=== PATIENT | female | born 1970 | race Caucasian/White ===

== ENCOUNTER 2017-03-25 15:08 | Emergency (ER) | payer OTHER ==
[~2017-03-25] VITALS: Ht 162.6 cm; Wt 95.7 kg
--- OUTSIDE RECORDS SUMMARY | ~2017-03-25 | XMS ---
Demographics + + + | Address | [address] | | | [place] [address] | + + + | Preferred Language | Unknown | + + + | Marital Status | Unknown | + + + | Buddhist Affiliation | Unknown | + + + | Race | Unknown | + + + | Ethnic Group | Unknown | + + + Author + + + | Author | [facility] | + + + | Organization | [facility] | + + + | Address | [address] | | | [place] [address] | + + + | Phone | | + + + Care Team Providers + + + + | Care Senior Bi Developer Name | Role | Phone | + + + + Unavailable | Unavailable | + + + + PROBLEMS +---------+ + + +--------+ + + | Type | Condition | ICD9-CM | [id number] | Onset | Condition | SNOMED | | | | Code | Code | Dates | Status | Code | +---------+ + + +--------+ + + | Problem | Depression | 300.4 | | | Active | [id number] | | | with | | | | | | | | anxiety | | | | | | +---------+ + + +--------+ + + | Problem | Insomnia | F51.05 | | | Active | 75927091 | | | due to | | | | | | | | mental | | | | | | | | condition | | | | | | +---------+ + + +--------+ + + | Problem | Hyperglyce | 790.29 | | | Active | 58180045 | | | pedro | | | | | | +---------+ + + +--------+ + + | Problem | Hypertensi | | I10 | | Active | 41453123 | | | on | | | | | | +---------+ + + +--------+ + + | Problem | Family | Z80.3 | | | Active | 531897264 | | | history of | | | | | | | | breast | | | | | | | | cancer | | | | | | +---------+ + + +--------+ + + | Problem | Type 2 | | E11.9 | | Active | 950799750 | | | diabetes | | | | | | | | mellitus | | | | | | | | without | | | | | | | | complicati | | | | | | | | ons | | | | | | +---------+ + + +--------+ + + | Problem | GERD | | K21.9 | | Active | 325826527 | | | (gastroeso | | | | | | | | phageal | | | | | | | | reflux | | | | | | | | disease) | | | | | | +---------+ + + +--------+ + + | Problem | HTN | | I10 | | Active | 58479947 | | | (hypertens | | | | | | | | ion) | | | | | | +---------+ + + +--------+ + + | Problem | Heart | | R01.1 | | Active | 01000551 | | | murmur | | | | | | +---------+ + + +--------+ + + | Problem | Murmur | 785.2 | | | Active | 562391207 | +---------+ + + +--------+ + + | Problem | Anemia, | 280.9 | | | Active | 38930386 | | | iron | | | | | | | | deficiency | | | | | | | | , | | | | | | | | unspecifie | | | | | | | | d | | | | | | +---------+ + + +--------+ + + | Problem | SPRAIN OF | 844.9 | | | Active | 507971903 | | | KNEE & LEG | | | | | | | | NOS | | | | | | +---------+ + + +--------+ + + | Problem | Microcytos | R71.8 | | | Active | 611769510 | | | is | | | | | | +---------+ + + +--------+ + + | Problem | Radicular | 724.4 | | | Active | 954482683 | | | pain of | | | | | | | | right | | | | | | | | lower back | | | | | | +---------+ + + +--------+ + + ALLERGIES Unknown Allergies SOCIAL HISTORY No smoking Hx information available PLAN OF CARE VITAL SIGNS MEDICATIONS Unknown Medications RESULTS No Results PROCEDURES No Known procedures IMMUNIZATIONS No Known Immunizations"
--- OUTSIDE RECORDS SUMMARY | ~2017-03-25 | XMS ---
Demographics + + + | Address | [address] | | | [place] [address] | + + + | Preferred Language | Unknown | + + + | Marital Status | Unknown | + + + | Taoism Affiliation | Unknown | + + + | Race | Unknown | + + + | Ethnic Group | Unknown | + + + Author + + + | Author | [facility] | + + + | Organization | [facility] | + + + | Address | [address] | | | [place] [address] | + + + | Phone | | + + + Care Team Providers + + + + | Care Locker Room Supervisor Name | Role | Phone | + + + + Unavailable | Unavailable | + + + + PROBLEMS +---------+ + + +--------+ + + | Type | Condition | ICD9-CM | [id number] | Onset | Condition | SNOMED | | | | Code | Code | Dates | Status | Code | +---------+ + + +--------+ + + | Problem | Depression | 300.4 | | | Active | [id number] | | | with | | | | | | | | anxiety | | | | | | +---------+ + + +--------+ + + | Problem | Insomnia | F51.05 | | | Active | 97363090 | | | due to | | | | | | | | mental | | | | | | | | condition | | | | | | +---------+ + + +--------+ + + | Problem | Hyperglyce | 790.29 | | | Active | 26252312 | | | pedro | | | | | | +---------+ + + +--------+ + + | Problem | Hypertensi | | I10 | | Active | 35274740 | | | on | | | | | | +---------+ + + +--------+ + + | Problem | Family | Z80.3 | | | Active | 219568247 | | | history of | | | | | | | | breast | | | | | | | | cancer | | | | | | +---------+ + + +--------+ + + | Problem | Type 2 | | E11.9 | | Active | 202301897 | | | diabetes | | | | | | | | mellitus | | | | | | | | without | | | | | | | | complicati | | | | | | | | ons | | | | | | +---------+ + + +--------+ + + | Problem | GERD | | K21.9 | | Active | 530475141 | | | (gastroeso | | | | | | | | phageal | | | | | | | | reflux | | | | | | | | disease) | | | | | | +---------+ + + +--------+ + + | Problem | HTN | | I10 | | Active | 94650082 | | | (hypertens | | | | | | | | ion) | | | | | | +---------+ + + +--------+ + + | Problem | Heart | | R01.1 | | Active | 45346788 | | | murmur | | | | | | +---------+ + + +--------+ + + | Problem | Murmur | 785.2 | | | Active | 088228459 | +---------+ + + +--------+ + + | Problem | Anemia, | 280.9 | | | Active | 69267834 | | | iron | | | [...] | 844.9 | | | Active | 399551588 | | | KNEE & LEG | | | | | | | | NOS | | | | | | +---------+ + + +--------+ + + | Problem | Microcytos | R71.8 | | | Active | 197604868 | | | is | | | | | | +---------+ + + +--------+ + + | Problem | Radicular | 724.4 | | | Active | 895059090 | | | pain of | | | | | | | | right | | | | | | | | lower back | | | | | | +---------+ + + +--------+ + + ALLERGIES No Information SOCIAL HISTORY Never Assessed PLAN OF CARE VITAL SIGNS MEDICATIONS Unknown Medications RESULTS No Results PROCEDURES No Known procedures IMMUNIZATIONS No Known Immunizations MEDICAL (GENERAL) HISTORY + + +---------+ | Type | Description | Date | + + +---------+ | Medical History | hypertension {BP meds | | | | problems: Clonidine IR | | | | helps but unable to take | | | | more than at night because | | | | it causes too much | | | | drowsiness, . Catapres | | | | patch-irritated skin; | | | | Lisinopril/Losartan/Metopro | | | | lol-caused | | | | itching/dizziness and body | | | | aches; Diltiazem-caused | | | | increased skin | | | | sensitivity/lightheadedness | | | | } | | + + +---------+ | Medical History | GERD | | + + +---------+ | Medical History | microcytosis, could be iron | | | | deficiency anemia. | | + + +---------+ | Surgical History | gall bladder | 1988 | + + +---------+ | Surgical History | HINA, BSO - complex pelvic | 07/2013 | | | mass | | + + +---------+ | Surgical History | fracture Left wrist | 04/2014 | + + +---------+ | Surgical History | TVT midurethral sling / | 08/2016 | | | cystoscopy | | + + +---------+ | Hospitalization History | [facility] | | + + +---------+"
--- OUTSIDE RECORDS SUMMARY | ~2017-03-25 | XMS ---
Demographics + + + | Address | [address] | | | [place] [address] | + + + | Preferred Language | Unknown | + + + | Marital Status | Unknown | + + + | Yazidism Affiliation | Unknown | + + + | Race | Unknown | + + + | Ethnic Group | Unknown | + + + Author + + + | Author | [facility] | + + + | Organization | [facility] | + + + | Address | [address] | | | [place] [address] | + + + | Phone | | + + + Care Team Providers + + + + | Care Temper Mill Roller Name | Role | Phone | + + + + Unavailable | Unavailable | + + + + PROBLEMS +---------+ + + +--------+ + + | Type | Condition | ICD9-CM | VHH43-AE | Onset | Condition | SNOMED | | | | Code | Code | Dates | Status | Code | +---------+ + + +--------+ + + | Problem | Depression | 300.4 | | | Active | [id number] | | | with | | | | | | | | anxiety | | | | | | +---------+ + + +--------+ + + | Problem | Insomnia | F51.05 | | | Active | 04549451 | | | due to | | | | | | | | mental | | | | | | | | condition | | | | | | +---------+ + + +--------+ + + | Problem | Hyperglyce | 790.29 | | | Active | 78105508 | | | pedro | | | | | | +---------+ + + +--------+ + + | Problem | Hypertensi | | I10 | | Active | 35973570 | | | on | | | | | | +---------+ + + +--------+ + + | Problem | Family | Z80.3 | | | Active | 254343144 | | | history of | | | | | | | | breast | | | | | | | | cancer | | | | | | +---------+ + + +--------+ + + | Problem | Type 2 | | E11.9 | | Active | 640092986 | | | diabetes | | | | | | | | mellitus | | | | | | | | without | | | | | | | | complicati | | | | | | | | ons | | | | | | +---------+ + + +--------+ + + | Problem | GERD | | K21.9 | | Active | 383746924 | | | (gastroeso | | | | | | | | phageal | | | | | | | | reflux | | | | | | | | disease) | | | | | | +---------+ + + +--------+ + + | Problem | HTN | | I10 | | Active | 35414765 | | | (hypertens | | | | | | | | ion) | | | | | | +---------+ + + +--------+ + + | Problem | Heart | | R01.1 | | Active | 91797159 | | | murmur | | | | | | +---------+ + + +--------+ + + | Problem | Murmur | 785.2 | | | Active | 694925915 | +---------+ + + +--------+ + + | Problem | Anemia, | 280.9 | | | Active | 38768898 | | | iron | | | [...] | 844.9 | | | Active | 203878154 | | | KNEE & LEG | | | | | | | | NOS | | | | | | +---------+ + + +--------+ + + | Problem | Microcytos | R71.8 | | | Active | 427136260 | | | is | | | | | | +---------+ + + +--------+ + + | Problem | Radicular | 724.4 | | | Active | 692912427 | | | pain of | | [...]
--- OUTSIDE RECORDS SUMMARY | ~2017-03-25 | XMS ---
Demographics + + + | Address | [address] | | | [place] [address] | + + + | Preferred Language | Unknown | + + + | Marital Status | Unknown | + + + | Alevism Affiliation | Unknown | + + + | Race | Unknown | + + + | Ethnic Group | Unknown | + + + Author + + + | Author | [facility] | + + + | Organization | [facility] | + + + | Address | [address] | | | [place] [address] | + + + | Phone | | + + + Care Team Providers + + + + | Care Footwear Machinery Instructor Name | Role | Phone | + + + + Unavailable | Unavailable | + + + + PROBLEMS +---------+ + + +--------+ + + | Type | Condition | ICD9-CM | VHX22-OT | Onset | Condition | SNOMED | | | | Code | Code | Dates | Status | Code | +---------+ + + +--------+ + + | Problem | Depression | 300.4 | | | Active | 965158817 | | | with | | | | | | | | anxiety | | | | | | +---------+ + + +--------+ + + | Problem | Insomnia | F51.05 | | | Active | 69070103 | | | due to | | | | | | | | mental | | | | | | | | condition | | | | | | +---------+ + + +--------+ + + | Problem | Hyperglyce | 790.29 | | | Active | 03699282 | | | pedro | | | | | | +---------+ + + +--------+ + + | Problem | Hypertensi | | I10 | | Active | 33356466 | | | on | | | | | | +---------+ + + +--------+ + + | Problem | Family | Z80.3 | | | Active | 449144246 | | | history of | | | | | | | | breast | | | | | | | | cancer | | | | | | +---------+ + + +--------+ + + | Problem | Type 2 | | E11.9 | | Active | 218927182 | | | diabetes | | | | | | | | mellitus | | | | | | | | without | | | | | | | | complicati | | | | | | | | ons | | | | | | +---------+ + + +--------+ + + | Problem | GERD | | K21.9 | | Active | 173421477 | | | (gastroeso | | | | | | | | phageal | | | | | | | | reflux | | | | | | | | disease) | | | | | | +---------+ + + +--------+ + + | Problem | HTN | | I10 | | Active | 19449227 | | | (hypertens | | | | | | | | ion) | | | | | | +---------+ + + +--------+ + + | Problem | Heart | | R01.1 | | Active | 18657261 | | | murmur | | | | | | +---------+ + + +--------+ + + | Problem | Murmur | 785.2 | | | Active | 112937656 | +---------+ + + +--------+ + + | Problem | Anemia, | 280.9 | | | Active | 80070315 | | | iron | | | [...] | 844.9 | | | Active | 472305434 | | | KNEE & LEG | | | | | | | | NOS | | | | | | +---------+ + + +--------+ + + | Problem | Microcytos | R71.8 | | | Active | 169039801 | | | is | | | | | | +---------+ + + +--------+ + + | Problem | Radicular | 724.4 | | | Active | 480956414 | | | pain of | | [...]
[~2017-03-25 15:08] MED LIST: ALEVE220 MG PO; CATAPRES0.1 MG PO; CLONIDINE HCL0.1 MG PO; FAMOTIDINE10 MG PO; IBUPROFEN800 MG PO; LORTAB 5-325 M1 EACH PO; MIDOL220 MG PO; NORCO 10-325 T1 EACH PO; NORCO 5-325 TA1 EACH PO; OMEPRAZOLE20 MG PO; PERCOCET 5-3251 EACH PO; POTASSIUM CHLO10 MEQ PO; PREMARIN0.9 MG PO; PROMETHAZINE HC25 M1 PO; SLEEP AID25 M1 PO; TRAZODONE HCL100 MG PO; ZOLOFT50 MG PO
[2017-03-25] MEDS ORDERED: CLONIDINE HCL0.1 MG PO ×2 (15:34)
[2017-03-25] MEDS ORDERED: SERTRALINE HCL50 MG PO (15:34)
== END 2017-03-25 17:03 | disposition home or self-care (01) ==
LOC: ED 15:08
DX: I10 Essential (primary) hypertension (principal); F32.9 Major depressive disorder, single episode, unspecified; Z88.0 Allergy status to penicillin; Z88.5 Allergy status to narcotic agent; Z88.8 Allergy status to other drugs, medicaments and biological substances; Z90.49 Acquired absence of other specified parts of digestive tract; Z90.710 Acquired absence of both cervix and uterus; Z79.899 Other long term (current) drug therapy; Z98.890 Other specified postprocedural states
CPT/HCPCS: 99283

== ENCOUNTER 2018-12-06 08:40 | Emergency (ER) | payer OTHER ==
[~2018-12-06] VITALS: Ht 162.6 cm; Wt 95.7 kg
--- OUTSIDE RECORDS SUMMARY | ~2018-12-06 | XMS | Clinical Summary ---
Demographics + + + | Address | [address] | | | [place] [address] | + + + | Home Phone | | + + + | Preferred Language | Unknown | + + + | Marital Status | | + + + | Latter Day Affiliation | Unknown | + + + | Race | Unknown | + + + | Ethnic Group | Unknown | + + + Author + + + | Author | [facility] (Historical as of | | | 10-19-18) | + + + | Organization | [facility] (Historical as of | | | 10-19-18) | + + + | Address | Unknown | + + + | Phone | Unavailable | + + + Support + + +---------+ + | Name | Relationship | Address | Phone | + + +---------+ + | Zaire Paul | ECON | Unknown | | + + +---------+ + Care Team Providers + +------+ + | Care Meat Specialist Name | Role | Phone | + +------+ + | Marlon Keller MD | PP | | + +------+ + Allergies Not on File Current Medications Not on file Active Problems Not on file Social History + +-------+ +--------+------+ | Tobacco Use | Types | Packs/Day | Years | Date | | | | | Used | | + +-------+ +--------+------+ | Never Assessed | | | | | + +-------+ +--------+------+ + + + | Sex Assigned at | Date Recorded | | | | + + + | Not on file | | + + + Plan of Treatment + + + + + | Health Maintenance | Due Date | Last Done | Comments | + + + + + | Vaccine: | | | | | Dtap/Tdap/Td (1 - | 8 | | | | Tdap) | | | | + + + + + | Cervical Cancer | | | | | Screening (Pap) | 9 | | | + + + + + | Vaccine: Influenza | | | | | (#1) | 9 | | | + + + + + | Vaccine: Zoster (1 | | | | | of 2) | 9 | | | + + + + + Results Not on filefrom Last 3 Months Insurance + +--------+ +------+-------+ + | Payer | Benefi | Subscriber | Type | Phone | Address | | | t Plan | ID | | | | | | / | | | | | | | Group | | | | | + +--------+ +------+-------+ + | MEDICAID | [employer] | [id number] | | | [address] | | | N | | | | [place], [place] | | | [place] | | | | [phone] | | | 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
--- OUTSIDE RECORDS SUMMARY | ~2018-12-06 | XMS | Clinical Summary ---
Demographics + + + | Address | [address] | | | [place] [address] | + + + | Home Phone | | + + + | Preferred Language | Unknown | + + + | Marital Status | | + + + | Faith Affiliation | Unknown | + + + | Race | Unknown | + + + | Ethnic Group | Unknown | + + + Author + + + | Author | [facility] (Historical as of | | | 10-19-18) | + + + | Organization | [facility] (Historical as of | | | 10-19-18) [...] Team Providers + +------+ + | Care Clinic Scheduler Name | Role | Phone | + [...] +------+-------+ + | MEDICAID | [employer] | [id number] | | | [address] | | | N | | | | [place], [place] | | | [place] | | | | [phone] | | | 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
--- OUTSIDE RECORDS SUMMARY | ~2018-12-06 | XMS ---
Demographics + + + | Address | [address] | | | [place] [address] | + + + | Preferred Language | Unknown | + + + | Marital Status | Unknown | + + + | Baptism Affiliation | Unknown | + + + | Race | Unknown | + + + | Ethnic Group | Unknown | + + + Author + + + | Author | [facility] | + + + | Organization | [facility] | + + + | Address | [address] | | | [place] [address] | + + + | Phone | | + + + Care Team Providers + + + + | Care Logistics Planning Engineer Name | Role | Phone | + + + + Unavailable | Unavailable | + + + + PROBLEMS +---------+ + + +--------+ + + | Type | Condition | ICD9-CM | RBW82-[id number] | Onset | Condition | SNOMED | | | | Code | Code | Dates | Status | Code | +---------+ + + +--------+ + + | Problem | Depression | 300.4 | | | Active | [id number] | | | with | | | | | | | | anxiety | | | | | | +---------+ + + +--------+ + + | Problem | Insomnia | F51.05 | | | Active | 46003027 | | | due to | | | | | | | | mental | | | | | | | | condition | | | | | | +---------+ + + +--------+ + + | Problem | Hyperglyce | 790.29 | | | Active | 73076942 | | | pedro | | | | | | +---------+ + + +--------+ + + | Problem | Hypertensi | | I10 | | Active | 34651432 | | | on | | | | | | +---------+ + + +--------+ + + | Problem | Family | Z80.3 | | | Active | 753677471 | | | history of | | | | | | | | breast | | | | | | | | cancer | | | | | | +---------+ + + +--------+ + + | Problem | Type 2 | | E11.9 | | Active | 437388419 | | | diabetes | | | | | | | | mellitus | | | | | | | | without | | | | | | | | complicati | | | | | | | | ons | | | | | | +---------+ + + +--------+ + + | Problem | GERD | | K21.9 | | Active | 145550969 | | | (gastroeso | | | | | | | | phageal | | | | | | | | reflux | | | | | | | | disease) | | | | | | +---------+ + + +--------+ + + | Problem | HTN | | I10 | | Active | 11205668 | | | (hypertens | | | | | | | | ion) | | | | | | +---------+ + + +--------+ + + | Problem | Heart | | R01.1 | | Active | 32551950 | | | murmur | | | | | | +---------+ + + +--------+ + + | Problem | Murmur | 785.2 | | | Active | 719785713 | +---------+ + + +--------+ + + | Problem | Anemia, | 280.9 | | | Active | 19499926 | | | iron | | | [...] | 844.9 | | | Active | 814091768 | | | KNEE & LEG | | | | | | | | NOS | | | | | | +---------+ + + +--------+ + + | Problem | Microcytos | R71.8 | | | Active | 984649518 | | | is | | | | | | +---------+ + + +--------+ + + | Problem | Radicular | 724.4 | | | Active | 131486324 | | | pain of | | [...]
[~2018-12-06 08:40] MED LIST changes: +SERTRALINE HCL50 MG PO
== END 2018-12-06 10:30 | disposition home or self-care (01) ==
LOC: ED 08:40
DX: M79.671 Pain in right foot (principal); I10 Essential (primary) hypertension; Z88.0 Allergy status to penicillin; Z88.5 Allergy status to narcotic agent; Z79.899 Other long term (current) drug therapy
CPT/HCPCS: 73610; 99283-25

== ENCOUNTER 2019-12-23 08:46 | Day surgery (SDC) | payer OTHER ==
[~2019-12-23] VITALS: Ht 162.6 cm; Wt 218.0 kg
[~2019-12-23 08:46] MED LIST changes: +HYDROCHLOROTHIA25 MG PO; +MELATONIN10 MG PO; +NORVASC5 MG PO; +PRAVASTATIN SOD40 MG PO; +TROSPIUM CHLORI20 MG PO; +TRULICITY1.5 MG/0.5 SQ; +VALSARTAN160 MG PO
--- NOTE | 2019-12-23 10:55 | NUR ---
12/23/19 1055 Ifeoma Echeverria 1048- PT TO PACU IN LL POSITION. EYES CLOSED. RESPONDS TO VERBAL AND TACTILE STIMULI. BREATHING EASY AND UNLABORED. SPO2 >95% ON 10L O2 VIA OXY MASK. O2 TITRATED DOWN TO 3 L O2 VIA NC. SPO2 REMAINS >90%. PT DENIES PAIN AND VEBALIZES WHO WILL BE TAKING HER HOME TODAY. PT FALLS QUICKLY BACK TO SLEEP. 1055- PT ENCOURAGED TO MOBILIZE IN LL POSITION AND ENCOURAGED TO PASS GAS. BREATHING CONTINUES TO BE EASY AND UNLABORED. SPO2 >95% ON 3 L O2 VIA NC.
--- NOTE | 2019-12-23 13:30 | NUR ---
PT ARRIVED FROM PACU. REPORT RECIEVED FROM ELIZABETH Velarde RN. PT UP TO THE BATHROOM WITH 1 PERSON ASSIST FROM . VOIDED AND AMBULATED WITH NO COMPLICATIONS. PT IS NOW RESTING IN LOCKED AND LOWERED BED. SIDE RAILS UP. CALL LIGHT WITHIN REACH. AND SON AT THE BEDSIDE.
--- NOTE | 2019-12-23 13:50 | NUR ---
PT REPORTS NAUSEA AND REQUEST ZOFRAN. DR SÁNCHEZ CONTACTED VIA PHONE TO OBTAIN VERBAL ORDER.
--- NOTE | 2019-12-23 14:10 | NUR ---
PT REPORTS NAUSEA. IN TO ADMINISTER MEDICATION. ICE WATER AND CRACKERS PROVIDED. PT RESTING IN LOCKED AND LOWERED BED ON LEFT SIDE. SIDE RAILS UP. AND SON AT THE BESIDE. NO FURTHER REQUESTS AT THIS TIME.
--- NOTE | 2019-12-23 15:33 | NUR ---
REVIED PT DISCHARGE INSTRUCTIONS. PT UP TO THE RESTROOM AND GETTING DRESSED WITH THE ASSISTANCE OF .
--- NOTE | 2019-12-24 06:21 | OR ---
[facility] [address] [place], [place] [address] Signed DATE OF OPERATION: 12/23/2019 SURGEON: Rashad Sánchez MD PREOPERATIVE DIAGNOSES: 1. Screening. 2. Maternal 2nd cousin with colon cancer in her 30s. POSTOPERATIVE DIAGNOSES: 1. 4 mm rectal polyps x3 at 10 cm. 2. Long redundant sigmoid colon. PROCEDURES: Colonoscopy with hot biopsy. ESTIMATED BLOOD LOSS: None. INDICATIONS: Karyna is a 49-year-old female asked to see me for her initial screening colonoscopy. She has no lower GI complaints. She mentioned a maternal 2nd cousin, who developed colon cancer in her 30s. She has been through surgery for that colon cancer. Karyna herself has been to upper endoscopy. Consequently, she is familiar with this process. I gave her a booklet on colonoscopy and we looked at that together in detail. She understands the nature of the test along with the risks including, but not limited to gas bloating, crampy abdominal pain, bleeding, perforation requiring surgery, and missed diagnosis. We also discussed the need for IV conscious sedation, she had expressed understanding and wished to proceed. DESCRIPTION OF PROCEDURE: Karyna was taken into our endoscopy suite and placed in the left lateral decubitus position. She was given a total of 10 mg of Versed and 200 mcg of fentanyl to cover the case. Mainly, she had a long redundant looped sigmoid colon and that gave us the most trouble. Towards the end of the case the right colon, we finally pulled the camera back yet again and that straightened out the loop and after that, the camera passed much more readily. A digital rectal exam had been done and that was unremarkable. The scope had been introduced and advanced under direct visualization. We had used abdominal compression and rotated Karyna into the supine position. Eventually, we straighten the loop in the sigmoid colon and then, the camera passed nicely down into the cecum itself. Her prep was good. We could easily see the Electronically Signed By: RASHAD SÁNCHEZ MD 12/24/19 0621 PATIENT NAME: KARYNA LUNA OPERATIVE REPORT DATE OF : 66 REPORT #: [id number] PHYSICIAN: RASHAD SÁNCHEZ MD PCP: ALEK DOSS MD REPORT IS CONFIDENTIAL AND NOT TO BE RELEASED WITHOUT AUTHORIZATION [address] [address] Signed appendiceal orifice and the ileocecal valve. The scope was slowly withdrawn. We took pictures throughout for photodocumentation. No pathology in her colon. In the rectum around 10 cm, she had three small 4 mm hyperplastic appearing polyps. They were all easily removed with the help of hot biopsy forceps. Upon retroflexion of scope, there was no additional pathology noted above the anal canal. After this, the gas was suctioned out and the colonoscope was removed. Overall, Karyna tolerated procedure quite well. RECOMMENDATIONS: I will see Karyna back in my office in 7 to 14 days to review her results. Rashad Sánchez MD ALB/MODL /[id number] cc: MD Rashad Galo MD Copies: RASHAD SÁNCHEZ MD ~ Electronically Signed By: RASHAD SÁNCHEZ MD 12/24/19 0621 PATIENT NAME: KARYNA LUNA KANE OPERATIVE REPORT DATE OF : 66 REPORT #: [id number] PHYSICIAN: RASHAD SÁNCHEZ MD PCP: ALEK DOSS MD REPORT IS CONFIDENTIAL AND NOT TO BE RELEASED WITHOUT AUTHORIZATION
--- NOTE | 2019-12-24 10:55 | PATH ---
[facility] [address], [place] [address] Signed SPECIMEN(S): A COLON POLYP AT 10 CM SPECIMEN SOURCE: A. COLON POLYP AT 10 CM CLINICAL HISTORY: Screening. Dx: Polyps. Colonoscopy. MICROSCOPIC DESCRIPTION: Histologic sections of all submitted blocks are examined by light microscopy. These findings, together with the gross examination, support the pathologic diagnosis. FINAL PATHOLOGIC DIAGNOSIS: Colon, polyp at 10 cm, polypectomy: - Fragments of hyperplastic polyp. - Negative for dysplasia or malignancy. NAL:cml:C2NR GROSS DESCRIPTION: The specimen, labeled "LC," and designated on the requisition "colon polypectomy at 10 cm," is received in formalin and consists of three fragments of pink-garcía tissue (0.7 x 0.5 x 0.2 cm in aggregate). The specimen is submitted entirely in cassette (A1). AC (under the direct supervision of a pathologist) The Gross Description was prepared using a voice recognition system. The report was reviewed for accuracy; however, sound-alike word errors, addition and/or deletions may occur. If there is any question about this report, please contact Client Services. PERFORMING LABORATORY: The technical component was performed by [employer] [employer], [address] [place] [address] (Buffing Machine Tender: Dyan Salamanca MD; CLIA# [id number]). [facility], [address] [address] (CLIA# [id number]). Diagnostician: Mery Casas MD Pathologist Electronically Signed 12/24/2019 PATIENT NAME: KEITH LUNA PATHOLOGY DATE OF : 66 REPORT #: [id number] PHYSICIAN: JUDITH PATHOLOGY PCP: ALEK DOSS MD REPORT IS CONFIDENTIAL AND NOT TO BE RELEASED WITHOUT AUTHORIZATION [address] [place], [place] [address] Signed Copies: ~ PATIENT NAME: KEITH LUNA PATHOLOGY DATE OF : 66 REPORT #: [id number] PHYSICIAN: JUDITH PATHOLOGY PCP: ALEK DOSS MD REPORT IS CONFIDENTIAL AND NOT TO BE RELEASED WITHOUT AUTHORIZATION
== END 2019-12-23 15:35 | disposition home or self-care (01) ==
LOC: OPS 08:46 → DS 08:46 → OPS 10:30
PROVIDERS: ATTEND Colon & Rectal Surgery
PROC: 0DBE8ZZ Excision of Large Intestine, Via Natural or Artificial Opening Endoscopic (ICD-10-PCS; principal; 2019-12-23 10:30)
DX: Z12.11 Encounter for screening for malignant neoplasm of colon (principal); K63.5 Polyp of colon; G47.00 Insomnia, unspecified; I10 Essential (primary) hypertension; K21.9 Gastro-esophageal reflux disease without esophagitis; D50.9 Iron deficiency anemia, unspecified; Z79.899 Other long term (current) drug therapy; Z88.8 Allergy status to other drugs, medicaments and biological substances; Z88.0 Allergy status to penicillin; Z88.2 Allergy status to sulfonamides
CPT/HCPCS: 99153; G0500; J2250; J2405; J3010; J7121

== ENCOUNTER 2022-10-13 05:30 | Day surgery (SDC) | payer OTHER ==
[2022-10-12 16:04] VITALS: BP 121/84
[~2022-10-13] VITALS: Ht 162.6 cm; Wt 90.9 kg
[2022-10-13 05:50] VITALS: BP 133/71
[2022-10-13] MEDS ORDERED: HYDROCODON-ACE1 EA10 PO (07:27)
--- NOTE | 2022-10-13 07:36 | NUR ---
10/13/22 0736 Angelica Urias 0726 PT TO PACU SLEEPY BUT AROUSABLE, DENIES PAIN OR NAUSEA. ICE PLACED ON RT WRIST,
[2022-10-13 07:51] VITALS: BP 118/63
--- NOTE | 2022-10-13 07:57 | NUR ---
0750-PATIENT BACK TO ROOM FROM PACU ON RA. RECEIVED REPORT FROM BRENDON BUNCH. PATIENT IS DROWSY. DENIES PAIN AND NASUEA. RESP EVEN AND UNLABORED. RIGHT ARM ELEVATED ON A PILLOW AND HAND PLACED ON ICE PACK. CALL LIGHT WITHIN REACH.
--- NOTE | 2022-10-13 08:39 | OR ---
[facility] [address], [place] [address] Signed DATE OF OPERATION: 10/13/2022 SURGEON: Kenia Urias MD PREOPERATIVE DIAGNOSIS: Carpal tunnel syndrome, right. POSTOPERATIVE DIAGNOSIS: Carpal tunnel syndrome, right. PROCEDURE PERFORMED: Right carpal tunnel release. TAPPING MACHINE OPERATOR: None. ANESTHESIA: General. TOURNIQUET TIME: 6 minutes. 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 She has had it for years. Nerve conduction studies showed severe compression of the nerve. Risks, benefits, and alternatives were discussed of surgery with her and she elected to proceed. DESCRIPTION OF PROCEDURE: Once consent was obtained, she was taken to the operating room. After adequate anesthesia, she was placed on the operating table. All downside pressure points were well padded. The arm was prepped and draped in a standard sterile fashion, exsanguinated using Esmarch bandage and tourniquet inflated to 200 mmHg. Standard volar approach to the carpal tunnel was taken to the transverse incision and the palmaris longus was identified, retracted and protected. The transverse carpal ligament was then identified under loupe magnification. It was then released proximally a cm and distally to the distal extent again under direct loupe magnification. The canal was then palpated using a Monson and found to be completely released. The wound was copiously irrigated with normal saline, closed with 3-0 nylon and injected with 7 mL of 0.25% plain Marcaine. The Electronically Signed By: KENIA URIAS MD 10/13/22 0839 PATIENT NAME: KARYNA LUNA OPERATIVE REPORT DATE OF : 66 REPORT #: [id number] PHYSICIAN: KENIA URIAS MD PCP: ALEK DOSS MD REPORT IS CONFIDENTIAL AND NOT TO BE RELEASED WITHOUT AUTHORIZATION [facility] [address], [place] [address] Signed wound was then dressed with bacitracin, Adaptic, 4 x 8s and gauze. She tolerated the procedure well. All sponge, needle, and instrument counts were correct. Kenia Urias MD BA/CARTER /[id number] Copies: ~ Electronically Signed By: KENIA URIAS MD 10/13/22 0839 PATIENT NAME: KARYNA LUNA OPERATIVE REPORT DATE OF : 66 REPORT #: [id number] PHYSICIAN: KENIA URIAS MD PCP: ALEK DOSS MD REPORT IS CONFIDENTIAL AND NOT TO BE RELEASED WITHOUT AUTHORIZATION
[2022-10-13 08:51] VITALS: BP 116/64
--- NOTE | 2022-10-13 08:57 | NUR ---
0855-PATIENT IS LAYING IN BED. AWAKES EASILY WITH VERBAL STIMULI. DENEIS PAIN AND NAUSEA. RESP EVEN AND UNLABORED. RIGHT ARM IS ELEVATED ON PILLOW WITH ICE PACK IN PLACE. PATIENT TAKING SIPS OF WATER. CALL LIGHT WITHIN REACH.
--- NOTE | 2022-10-13 09:33 | NUR ---
0928-PATIENT UP TO RESTROOM. GAIT STEADY AND TOLERATED WELL. PATEINT VOIDED. 0933-PATIENT BACK TO ROOM, SITTING AT THE EDGE OF BED EATING PUDDING. STATES FEELS TIRED BUT WOULD LIKE TO GO HOME.
[2022-10-13 09:40] VITALS: BP 123/69
--- NOTE | 2022-10-13 10:52 | NUR ---
LE 0940-PATIENT DRESSSED AND LAYING IN BED. VSS. DRESSING IS CLEAN, DRY, AND INTACT. LE 0945-DISCHARGE INSTRUCTIONS GIVEN TO PATIENT. ALL QUESTIONS ANSWERED. PATIENT AMBULATES TO WHEELCHAIR AND RIDE PROVIDED TO FRONT OF HOSPITAL WHERE HER SON WAS WAITING WITH THE CAR.
== END 2022-10-13 09:45 | disposition home or self-care (01) ==
LOC: OPS 05:30 → DS 05:30 → OPS 07:00
PROVIDERS: ATTEND Specialist
PROC: 01N50ZZ Release Median Nerve, Open Approach (ICD-10-PCS; principal; 2022-10-13 07:30)
DX: G56.01 Carpal tunnel syndrome, right upper limb (principal); I10 Essential (primary) hypertension; K21.9 Gastro-esophageal reflux disease without esophagitis; E11.9 Type 2 diabetes mellitus without complications; F32.A Depression, unspecified; F41.9 Anxiety disorder, unspecified; Z88.0 Allergy status to penicillin; Z88.8 Allergy status to other drugs, medicaments and biological substances; Z90.710 Acquired absence of both cervix and uterus
CPT/HCPCS: 01810; J0131; J0690; J0780; J1885; J2001; J2704; J3010; J7121